=== PATIENT | female | born 1995 | race Caucasian/White ===

== ENCOUNTER → 2019-08-22 | Outpatient (REF) | payer OTHER ==
[2019-08-22 13:41] LABS: CHLAMYDIA DNA AMPLIFICATION NEGATIVE (NEGATIVE); GC DNA AMPLIFICATION NEGATIVE (NEGATIVE)
== END ==
LOC: M SFHCWAGY 11:01
PROVIDERS: ATTEND Advanced Practice Midwife
DX: O30.042 Twin pregnancy, dichorionic/diamniotic, second trimester (principal); Z3A.00 Weeks of gestation of pregnancy not specified

== ENCOUNTER → 2019-09-03 | Outpatient (CLI) | payer OTHER ==
[2019-09-03 18:37] LABS: GLUCOSE CHALLENGE TEST 1 HOUR 133 MG/DL (LESS THAN 140)
[2019-09-03 18:54] LABS: BASO # 0.1 10^3/uL (0.0-0.2); BASO % 0.5 % (0.0-1.0); EOS # 0.3 10^3/uL (0.0-0.5); EOS % 2.5 % (0.0-3.0); HEMATOCRIT 37.1 % (36.0-47.0); HEMOGLOBIN 11.9 g/dl (12.0-15.5); LYMPH % 15.9 % (24.0-44.0); MEAN CORPUSCULAR HEMOGLOBIN 30.7 pg (27.0-33.0); MEAN CORPUSCULAR HGB CONC 32.1 g/dl (32.0-36.5); MEAN CORPUSCULAR VOLUME 95.6 fl (80.0-96.0); MONO # 0.8 10^3/uL (0.0-0.8); MONO % 6.4 % (0.0-5.0); NEUTROPHILS # 9.3 10^3/uL (1.5-8.5); NEUTROPHILS % 74.2 % (36.0-66.0); PLATELET COUNT, AUTOMATED 349 10^3/uL (150-450); RED BLOOD COUNT 3.88 10^6/uL (4.00-5.40); WHITE BLOOD COUNT 12.6 10^3/uL (4.0-10.0)
[2019-09-04 13:44] LABS: HIV 1&2 SCREEN CENTAUR NEGATIVE (NEGATIVE)
[2019-09-04 14:11] LABS: HEPATITIS C VIRUS ABY INDEX 0.2 INDEX (<0.8)
[2019-09-04 14:26] LABS: RUBELLA IgG QUALITATIVE IMMUNE (IMMUNE)
== END ==
LOC: M PLALAB 13:04
PROVIDERS: ATTEND Advanced Practice Midwife
DX: O30.042 Twin pregnancy, dichorionic/diamniotic, second trimester (principal); Z3A.00 Weeks of gestation of pregnancy not specified

== ENCOUNTER → 2019-09-13 | Outpatient (CLI) | payer OTHER | LOC: M LAB 08:02 | PROVIDERS: ATTEND Advanced Practice Midwife | DX: O30.043 Twin pregnancy, dichorionic/diamniotic, third trimester (principal); Z3A.00 Weeks of gestation of pregnancy not specified ==

== ENCOUNTER → 2019-10-08 | Outpatient (CLI) | payer OTHER ==
--- NOTE | 2019-10-09 14:34 | REP ---
OBSTETRIC SONOGRAPHY: Multiple gestation. HISTORY: Third trimester growth study. Twin . 32 weeks 4 days by prior study. FINDINGS: A diamniotic dichorionic twin gestation is seen. Placenta is posterior fundal grade 2 for fetus A and anterior grade 2 for fetus B. There is no evidence of previa or abruption. Closed cervical length is measured transabdominally at 2.8 cm. There has been concordant and appropriate interval growth. Fetus A is breech in position along maternal left and twin B is transverse in lie with head to the maternal left. Amniotic fluid is subjectively normal. The deepest pocket surrounding twin A measures 5.9 and that surrounding twin B 5.6 cm. The following anatomic structures are identified in twin A and felt to be unremarkable: Face and profile, four-chamber heart with right ventricular outflow tract, diaphragm, left-sided stomach, three-vessel cord, kidneys and bladder. The following anatomic structures are identified in twin B and felt to be unremarkable: cranium, face and profile, four-chamber heart, left-sided stomach, three-vessel cord, kidneys and bladder. Biometry Chart Fetus A: BPD 8.1 cm = 32 weeks 4 days HC 30.6 cm = 34 weeks 1 day AC 28.2 cm = 32 weeks 2 days FL 5.7 cm = 29 weeks 6 days HL 5.7 cm = 33 weeks 0 days HC/AC ratio normal 1.09 Cephalic index normal 0.73. Estimated weight 1827 grams, 4 pounds 4 ounces, 27th percentile for 32 weeks 4 days. Biophysical profile score 8 out of a possible 8. SANTOS normal 5.9 cm. heart rate 133 beats per minute. Biometry Chart Fetus B: BPD 8.0 cm = 32 weeks 1 day HC 30.2 cm = 33 weeks 4 days AC 28.0 cm = 32 weeks 0 days FL 6.4 cm = 33 weeks 0 days HL 5.6 cm = 32 weeks 4 days HC/AC ratio normal 1.08 Cephalic index normal 0.73. Estimated weight 1989 grams, 4 pounds 6 ounces, 42nd percentile for 32 weeks 4 days Biophysical profile score 8 out of a possible 8. SANTOS 5.6 cm. heart rate 156 beats per minute. IMPRESSION: Viable twin intrauterine gestation at 32 weeks 4 days by comparison with prior study. There has been concordant and appropriate interval growth.
== END ==
LOC: M WHC 12:37
PROVIDERS: ATTEND Advanced Practice Midwife
DX: O30.043 Twin pregnancy, dichorionic/diamniotic, third trimester (principal)

== ENCOUNTER 2019-10-27 13:29 | Outpatient (CLI) | payer OTHER ==
[~2019-10-27] VITALS: Ht 160 cm; Wt 74.8 kg
[2019-10-27 13:39] VITALS: BP 140/82
[2019-10-27 14:13] VITALS: BP 120/67
== END 2019-10-27 14:49 | disposition home or self-care (01) ==
LOC: M LDO 13:29
PROVIDERS: ATTEND Obstetrics & Gynecology
DX: O26.853 Spotting complicating pregnancy, third trimester (principal); O47.03 False labor before 37 completed weeks of gestation, third trimester; Z3A.36 36 weeks gestation of pregnancy
CPT/HCPCS: 59025; G0378; G0463

== ENCOUNTER → 2019-10-28 | Outpatient (REF) | payer OTHER ==
[~2019-10-28] MED LIST: ONDA4TAB6 PO
== END ==
LOC: M SFHCWAGY 12:59
PROVIDERS: ATTEND Specialist
DX: O30.043 Twin pregnancy, dichorionic/diamniotic, third trimester (principal); Z3A.00 Weeks of gestation of pregnancy not specified

== ENCOUNTER → 2019-10-29 | Outpatient (CLI) | payer OTHER ==
--- NOTE | 2019-10-30 09:34 | REP ---
Obstetric sonography: Multiple gestations: History: growth study. Twins. Comparison exam October 08, 2019. Findings: Diamniotic dichorionic twin gestation is again observed. Fetus A placenta is fundal posterior and fetus B placenta is anterior. No evidence of previa or abruption. Closed cervical length could not be visualized today due to low head position. There has been appropriate and concordant interval growth. Twin A is cephalic in the maternal midline. Fetus B is transverse in lie with the head to the maternal right. Amniotic fluid is subjectively normal. The deepest pocket of amniotic fluid surrounding twin A measures 2.2 cm and that adjacent to twin B is 1.5 cm. No extrauterine abnormalities observed. Exam quality is inhibited by crowding and advanced gestational age. Biometry chart fetus A: BPD 8.6 cm = 34 weeks 4 days Head circumference 30.7 cm = 34 weeks 1 day Abdominal circumference 30.9 cm = 34 weeks 6 days Femur length 6.8 cm = 34 weeks 6 days Humeral length 6.0 cm = 34 weeks 4 days HC/AC ratio 0.99. Cephalic index normal 0.79. Estimated weight 2504 grams, 5 pounds 8 ounces, 35th percentile. heart rate 147 beats per minute. S/D ratio in the umbilical cord artery by Doppler 2.18. Biometry chart fetus B: BPD 8.4 cm = 33 weeks 6 days Head circumference 32.1 cm = 36 weeks 1 day Abdominal circumference 31.3 cm = 35 weeks 2 days Femur length 6.8 cm = 34 weeks 5 days Humeral length 5.9 cm = 34 weeks 2 days HC/AC ratio normal 1.02 . Cephalic index normal 0.72. Estimated weight 2587 grams, 5 pounds 11 ounces, 40th percentile. heart rate 162 beats per minute. SANTOS 1.5 cm. S/D ratio 3.51. Impression: Viable twin intrauterine gestation at 36 weeks 2 days by comparison prior sonography. Appropriate and concordant interval growth. Electronically Signed by Andrea Hidalgo MD 10/30/2019 04:05 P
== END ==
LOC: M RAD 16:14
PROVIDERS: ATTEND Specialist
DX: O30.043 Twin pregnancy, dichorionic/diamniotic, third trimester (principal); Z3A.34 34 weeks gestation of pregnancy

== ENCOUNTER → 2019-11-07 | Outpatient (CLI) | payer OTHER ==
[~2019-11-07] MED LIST changes: +CELE10TA PO; +CITA10TA5 PO; +IBUP80TA PO; +OXYC1TAB23 PO
--- NOTE | 2019-11-07 13:42 | REP ---
Obstetric sonography: Multiple gestation. History: Twins for biophysical profile, nonreactive NST. Findings: Limited OB sonography demonstrates a known diamniotic dichorionic twin gestation. Placentas are posterior fundal for twin A and anterior for twin B, grade 2 without evidence of previa or abruption. Twin A is cephalic in position along maternal right and twin B is breech in position along maternal left. Amniotic fluid is subjectively normal in both gestations. The deepest pocket of amniotic fluid surrounding twin A is 5.5 cm and that at twin B is 5.0 cm. SD ratio in the umbilical cord artery by Doppler is 2.3 for twin A and 2.2 for twin B. Biophysical profile score is eight out of a possible eight for both twins. heart rate is recorded for twin A at 130 beats per minute and that for twin B at 136 beats per minute. No complication is identified. Electronically Signed by Andrea Hidalgo MD 11/07/2019 01:35 P
== END ==
LOC: M WHC 12:11
PROVIDERS: ATTEND Advanced Practice Midwife
DX: O30.043 Twin pregnancy, dichorionic/diamniotic, third trimester (principal); Z3A.00 Weeks of gestation of pregnancy not specified

== ENCOUNTER → 2019-11-12 | Outpatient (CLI) | payer OTHER ==
--- NOTE | 2019-11-12 17:42 | REP ---
Obstetric sonography: Multiple gestation. Limited study. History: Biophysical profile. Twin . Findings: Limited scanning demonstrates a known diamniotic dichorionic twin gestation. The placentas are posterior fundal for fetus A and anterior for fetus B, grade 3. Twin A is cephalic in lie along the maternal right. Twin B is in a breech position along maternal left. Amniotic fluid is subjectively normal. The deepest pocket surrounding twin A is 3.8 cm and that surrounding twin B 5.8 cm. S/D ratio in the umbilical cord is normal for both gestations measured at 2.2 for twin A and 2.10 for twin B. Biophysical profile score is 8 out of a possible 8 for both twins. heart rate for twin A is recorded at 144 beats per minute and that for twin B at 149 beats per minute. No complication is seen.
== END ==
LOC: M WHC 11:58
PROVIDERS: ATTEND Advanced Practice Midwife
DX: O30.049 Twin pregnancy, dichorionic/diamniotic, unspecified trimester (principal); Z3A.00 Weeks of gestation of pregnancy not specified

== ENCOUNTER 2019-11-15 06:21 | Inpatient (IN) | payer OTHER ==
[~2019-11-15] VITALS: Ht 160 cm; Wt 75.8 kg
[2019-11-15] VITALS (7 sets, daily range): BP systolic 127–168; BP diastolic 73–89
[~2019-11-15 06:21] MED LIST changes: -CELE10TA PO; -CITA10TA5 PO; -IBUP80TA PO; -OXYC1TAB23 PO
[2019-11-15] MEDS ORDERED: ceFAZolin 2 GM/D5W 50 ML IV BAG (J0690 PER 500MG) As Ordered ONE (06:47)
[2019-11-15] MEDS ORDERED: BICITRA 30ML SOLN UDC As Ordered ONE (06:47)
[2019-11-15] MEDS ORDERED: BICITRA 30ML SOLN UDC PO ONE (07:00)
[2019-11-15] MEDS ORDERED: ceFAZolin SOD 2 GM in IV 1 EA IV ONE (07:00)
[2019-11-15] MEDS ORDERED: LR 1,000 ML IV SCH ×2 (07:26→10:00)
[2019-11-15] MEDS ORDERED: LACTATED RINGER'S 1000 ML IV STA (07:26)
[2019-11-15 07:49] LABS: HEMATOCRIT 38.5 % (36.0-47.0); HEMOGLOBIN 12.7 g/dl (12.0-15.5); MEAN CORPUSCULAR HEMOGLOBIN 28.6 pg (27.0-33.0); MEAN CORPUSCULAR VOLUME 86.7 fl (80.0-96.0); PLATELET COUNT, AUTOMATED 305 10^3/uL (150-450); RED BLOOD COUNT 4.44 10^6/uL (4.00-5.40); WHITE BLOOD COUNT 8.9 10^3/uL (4.0-10.0)
[2019-11-15] MEDS ORDERED: ONDANSETRON 4MG/2ML VIAL (J2405) As Ordered ONE (08:25)
[2019-11-15] MEDS ORDERED: KETOROLAC 60 MG/2 ML VIAL (J1885) As Ordered ONE (08:25)
[2019-11-15] MEDS ORDERED: OXYTOCIN INJ 10 UNITS/ML VIAL (J2590) As Ordered ONE (08:25)
[2019-11-15] MEDS ORDERED: dexameTHASONE 4 MG/ML 1ML VIAL (J1100) As Ordered ONE (08:25)
[2019-11-15] MEDS ORDERED: fentaNYL 100 MCG/2 ML INJECTION (J3010) As Ordered ONE (08:26)
[2019-11-15] MEDS ORDERED: MORPHINE PRES-FREE INJ 10 MG/10 ML VIAL (J2274) As Ordered ONE (08:26)
[2019-11-15] MEDS ORDERED: MIDAZOLAM INJ 2 MG/2 ML VIAL (J2250) As Ordered ONE (09:22)
[2019-11-15] MEDS ORDERED: OXYTOCIN DRIP 30 UNITS in IV 1 EA IV SCH (09:35)
[2019-11-15] MEDS: LR 1,000 ML IV SCH ×2 (09:35→14:24)
[2019-11-15] MEDS ORDERED: PHENYLephrine HCL 500 MCG/5 ML (100MCG/ML) SYRINGE (J2370) As Ordered ONE (09:38)
[2019-11-15] MEDS ORDERED: RHOGAM 300 MCG (1500 IU) INJ (J2790) IM SCH (09:45)
[2019-11-15] MEDS ORDERED: PERCOCET 5MG/325MG TAB PO PRN (09:45)
[2019-11-15] MEDS ORDERED: MEASLES,MUMPS,RUBELLA VACCINE INJ (MMR-II) (90707) SC SCH (09:45)
[2019-11-15] MEDS ORDERED: ONDANSETRON 4MG/2ML VIAL (J2405) IV PRN ×3 (09:45→11:30)
[2019-11-15] MEDS ORDERED: fentaNYL 100 MCG/2 ML INJECTION (J3010) IV PRN (10:00)
[2019-11-15] MEDS ORDERED: NALBUPHINE HCL 10 MG/ML AMP (J2300) IV PRN ×2 (10:00→11:30)
[2019-11-15] MEDS ORDERED: OXYTOCIN 30 UNITS IN 0.9% NaCl 500ML IV BAG (J2590) As Ordered ONE (10:12)
--- NOTE | 2019-11-15 10:33 | RO ---
DATE OF PROCEDURE: 11/15/2019 PREPROCEDURE DIAGNOSIS: Twins, dichorionic/diamniotic, 38 weeks, breech presentation. POSTPROCEDURE DIAGNOSIS: Twins, dichorionic/diamniotic, 38 weeks, breech presentation. PROCEDURE: Primary low transverse section. SURGEON: Dr. Chris Elliott COMPUTER PATTERNMAKER: Dr. Dorothy Lauren ANESTHESIA: Spinal. ESTIMATED BLOOD LOSS: 600 mL. URINE OUTPUT: 100 mL. IV FLUIDS: 1900 mL lactated Ringers. FINDINGS: Twin A, anson breech position, 2590 grams, 5 pounds 11 ounces, male, Apgars 9 and 9. Twin B, vertex position, 2810 grams, 6 pounds 3 ounces, male, Apgars 9 and 9. Normal uterus, fallopian tubes and ovaries. DESCRIPTION OF PROCEDURE: The patient taken to the operating room where spinal anesthesia was induced. She was prepped and draped in sterile fashion in the supine position. A Cook catheter was placed. A Pfannenstiel skin incision was made with the scalpel and carried through to the fascia. The fascia was nicked and extended and the fascia dissected off the rectus muscles. The peritoneal cavity was entered. A bladder flap was created. A curvilinear incision was made in the lower uterine segment until clear fluid was noted. This was extended manually. Twin A was delivered from the anson breech position using standard maneuvers without difficulty. The cord was doubly clamped and cut. The was handed off to the awaiting nurses. Membranes ruptured of Twin B. Twin B was delivered from the vertex position without difficulty. The cord was doubly clamped and cut. The infant was handed off to the awaiting nurses. The placenta was expressed. The uterus was closed with #0 Vicryl in a running locked fashion. A second imbricating layer of #0 Vicryl was placed. Good hemostasis was noted. The peritoneum was closed with #2-0 Vicryl in a running fashion. The fascia was closed with #0 Vicryl. The deep layer was irrigated and closed with #2-0 chromic. The skin was closed with #4-0 Monocryl subcuticular sutures. Sponge, instrument and needle counts were correct. Dorothy Lauren MD, assisted throughout the procedure from beginning to end. He helped with creation of the incision, he helped deliver both fetuses, he helped close. He was indispensable to the procedure.
[2019-11-15] MEDS ORDERED: NALOXONE INJ 0.4 MG/1 ML VIAL (J2310) IV PRN ×2 (11:30)
[2019-11-15] MEDS ORDERED: METOCLOPRAMIDE INJ 10MG/2ML VIAL (J2765) IV PRN (11:30)
[2019-11-15] MEDS ORDERED: diphenhydrAMINE INJ 50MG/ML VIAL (J1200) IV PRN (11:30)
[2019-11-15] MEDS: KETOROLAC 30 MG/ML VIAL (J1885) IV SCH ×2 (15:20→21:32)
[2019-11-15] MEDS: PERCOCET 5MG/325MG TAB PO PRN (20:20)
[2019-11-16] MEDS: PERCOCET 5MG/325MG TAB PO PRN ×3 (00:26→21:43)
[2019-11-16] MEDS: KETOROLAC 30 MG/ML VIAL (J1885) IV SCH (04:15)
[2019-11-16 06:00] VITALS: BP 123/58
[2019-11-16] MEDS ORDERED: CITA10TA5 PO (07:20)
--- NOTE | 2019-11-16 07:26 | IPNPDOC ---
Text Note Date of Service The patient was seen on 11/16/19. NOTE PO #1 Pt and partner report feeling stressed. "Only 2hr sleep. Trying to breastfeed to make everyone happy." Reports adequate pain management at this time. Voiding and passing flatus. EPDS 17. VSS, afebrile, normotensive. Breasts soft, nipples intact Fundus firm, NT Pressure dressing intact, old drainage Lochia rubra scant without odor Legs negative. PO#1. Anxiety RT maternal pressures of and managing twins. Minimal community support. Long discussion with patient and partner about management of twins. Enc her to discuss with partner to decide method of feeding that feels right to them and not worry about "what others think". She and partner are both considering bottle feeding at this time Ani was previously treated with celexa and depakote prior to . States she feels like her head is "off." Would like to resume her celexa at this time. Routine care today. Enc OOB activity along with rest. VS,Fishbone, I+O VS, Fishbone, I+O Laboratory Tests 11/15/19 07:35 Vital Signs Date Time Temp Pulse Resp B/P (MAP) Pulse Ox O2 Delivery O2 Flow Rate FiO2 11/16/19 06:00 99.7 63 17 123/58 (79) 98 Room Air I&O- Last 24 Hours up to 6 AM 11/16/19 06:00 Intake Total 1780 ml Output Total 2600 ml Balance -820 ml Mikayla Domingo CNM Nov 16, 2019 07:26
[2019-11-16 07:46] LABS: HEMATOCRIT 32.1 % (36.0-47.0); HEMOGLOBIN 10.4 g/dl (12.0-15.5); MEAN CORPUSCULAR HEMOGLOBIN 28.6 pg (27.0-33.0); MEAN CORPUSCULAR HGB CONC 32.4 g/dl (32.0-36.5); MEAN CORPUSCULAR VOLUME 88.2 fl (80.0-96.0); PLATELET COUNT, AUTOMATED 254 10^3/uL (150-450); RED BLOOD COUNT 3.64 10^6/uL (4.00-5.40); WHITE BLOOD COUNT 10.4 10^3/uL (4.0-10.0)
[2019-11-16] MEDS: PRENATAL VITAMINS CHEWABLE TABLET PO SCH (08:57)
[2019-11-16 10:00] VITALS: BP 134/60
[2019-11-16] MEDS: IBUPROFEN 800 MG TAB PO SCH ×2 (11:08→18:34)
[2019-11-16] MEDS: CitaloPRAM (CeleXA) 10 MG TABLET PO SCH (11:08)
[2019-11-16] MEDS ORDERED: IBUPROFEN 800 MG TAB PO SCH (11:45)
[2019-11-16 14:00] VITALS: BP 137/66
[2019-11-16] MEDS: DOCUSATE SODIUM 100 MG CAP PO PRN (17:57)
[2019-11-16 18:00] VITALS: BP 147/84
[2019-11-16 22:00] VITALS: BP 128/71
[2019-11-17] MEDS: IBUPROFEN 800 MG TAB PO SCH ×4 (02:18→18:24)
[2019-11-17 06:00] VITALS: BP 119/70
[2019-11-17] MEDS: PRENATAL VITAMINS CHEWABLE TABLET PO SCH (09:35)
[2019-11-17] MEDS: CitaloPRAM (CeleXA) 10 MG TABLET PO SCH (09:35)
[2019-11-17 18:00] VITALS: BP 137/76
[2019-11-17] MEDS: DOCUSATE SODIUM 100 MG CAP PO PRN (20:00)
[2019-11-17] MEDS: PERCOCET 5MG/325MG TAB PO PRN (20:02)
[2019-11-18] MEDS: IBUPROFEN 800 MG TAB PO SCH ×2 (03:08→11:22)
[2019-11-18] MEDS ORDERED: IBUP80TA PO (04:22)
[2019-11-18] MEDS ORDERED: OXYC1TAB23 PO (04:22)
[2019-11-18] MEDS ORDERED: CELE10TA PO (04:22)
[2019-11-18 06:25] VITALS: BP 142/71
[2019-11-18] MEDS ORDERED: INFLUENZA QUADRIVALENT PF VACCINE 0.5ML SYRINGE (90686) IM ONE (09:00)
[2019-11-18] MEDS: PRENATAL VITAMINS CHEWABLE TABLET PO SCH (09:09)
[2019-11-18] MEDS: CitaloPRAM (CeleXA) 10 MG TABLET PO SCH (10:10)
--- NOTE | 2019-11-19 05:17 | DSES ---
DATE OF ADMISSION: 11/15/2019 DATE OF DISCHARGE: 11/18/2019 HISTORY: 24-year-old (G)1 female at 38 weeks gestation presents with di di twins for primary section . Her course was unremarkable. HOSPITAL COURSE: On 11/15/2019 the patient underwent primary section for twin . This resulted in two male fetuses. Twin A was 5 pounds, 1 ounce and twin B was 6 pounds, 3 ounces. Twin A was in breech presentation. Her postoperative course was unremarkable. She had active return of bladder and bowel function. Her postoperative hemoglobin was 10.4 g/dL. Both newborns thrived. She was deemed stable for discharge on postoperative day number three. ADMISSION DIAGNOSIS: , twins 38 weeks. DISCHARGE DIAGNOSIS: Delivered. PROCEDURE: Primary low transverse section. DISPOSITION: The patient will followup with Dr. Elliott in two weeks. Instructions were reviewed.
== END 2019-11-18 15:20 | disposition home or self-care (01) | DRG 773 ==
LOC: M LDI 06:21 → M OBS 13:46
PROVIDERS: ADMIT Specialist; ATTEND Specialist
PROC: 10D00Z1 Extraction of Products of Conception, Low, Open Approach (ICD-10-PCS; principal; 2019-11-15 08:30)
DX: O32.1XX0 Maternal care for breech presentation, not applicable or unspecified (principal); Z3A.38 38 weeks gestation of pregnancy; Z37.2 Twins, both liveborn; O30.043 Twin pregnancy, dichorionic/diamniotic, third trimester